=== PATIENT | female | born 1985 | race Caucasian/White ===

== ENCOUNTER 2017-02-03 01:30 | Emergency (ER) | payer OTHER ==
[~2017-02-03] VITALS: Ht 152.4 cm; Wt 43.1 kg
[2017-02-03] MEDS ORDERED: CEPHALEXIN500 M1 PO (02:18)
== END 2017-02-03 02:31 | disposition home or self-care (01) ==
LOC: ED 01:30
DX: L03.116 Cellulitis of left lower limb (principal); F17.200 Nicotine dependence, unspecified, uncomplicated

== ENCOUNTER 2023-12-26 10:35 | Emergency (ER) | payer OTHER ==
[~2023-12-26] VITALS: Ht 154.9 cm; Wt 52.2 kg
[~2023-12-26 10:35] MED LIST: CEPHALEXIN500 M1 PO
== END 2023-12-26 11:52 | disposition home or self-care (01) ==
LOC: ED 10:35
DX: F19.10 Other psychoactive substance abuse, uncomplicated (principal); F15.10 Other stimulant abuse, uncomplicated; F11.10 Opioid abuse, uncomplicated; F17.200 Nicotine dependence, unspecified, uncomplicated; Z79.2 Long term (current) use of antibiotics